=== PATIENT | female | born 1955 | race Caucasian/White ===

== ENCOUNTER 2016-10-24 21:09 | Inpatient (IN) | payer BC ==
[~2016-10-24] VITALS: Ht 167.6 cm; Wt 52.2 kg
[2016-10-24] MEDS ORDERED: TEGRETOL200 MG PO (21:22)
--- NOTE | 2016-10-24 21:43 | Emergency Room Report ---
History of Present Illness General Chief Complaint: Abdominal Pain Source: Patient Present Illness HPI Patient presents with complaints of diffuse mid and lower abdominal pain patient states that she ate a fruit (papaya) on Saturday and soon after began having a bloated sensation nauseated She has vomited several times Also complains of diarrhea Patient complains of frequency of urination as well Denies any chest pain or short of breath abdominal pain is cramping and bloating sensation 6/10 Patient initially has started to feel somewhat improved earlier today however the pain again returned Denies any change with position Allergies: Coded Allergies: ASPIRIN (Verified Allergy, Unknown, 10/24/16) Patient History Past Medical History: see triage record Pertinent Family History: none Last Menstrual Period: 2014 Now: No Reviewed Nursing Documentation: PMH: Agreed, PSxH: Agreed Nursing Documentation-PMH Past Medical History: No History, Except For Review of Systems All Other Systems: negative except mentioned in HPI Physical Exam Vital Signs Date Time Temp Pulse Resp B/P Pulse Ox O2 Delivery O2 Flow Rate FiO2 10/24/16 21:18 98.1 65 14 138/81 99 Room Air Sp02 EP Interpretation: reviewed, normal General Appearance: well appearing, no apparent distress Head: normocephalic, atraumatic Eyes: bilateral eye EOMI, bilateral eye PERRL ENT: hearing grossly normal, normal pharynx, TMs + canals normal, uvula midline Neck: full range of motion, supple, no meningismus, no bony tend Respiratory: lungs clear, normal breath sounds, no rhonchi, no respiratory distress, no retraction, no accessory muscle use Cardiovascular #1: normal peripheral pulses, regular rate, rhythm, no edema, no gallop, no JVD, no murmur Gastrointestinal: normal bowel sounds, soft, no mass, no organomegaly, non- distended, no guarding, no hernia, no pulsatile mass, no rebound, other - Uncomfortable diffusely on palpation I cannot localize the pain specifically, however patient has tender on the mid abdomen also bilateral lower abdomen, Genitourinary: no CVA tenderness Neurologic: oriented x3, responsive, fryline attendant III-XII nml as tested, motor strength/ tone normal, sensory intact Psychiatric: mood/affect normal Skin: normal color, no rash, warm/dry, palpation normal Lymphatic: normal inspection, no adenopathy Medical Decision Making Diagnostic Impression: Primary Impression: Small bowel obstruction Additional Impression: Leukocytosis ER Course Given the patient's initial history exam and presentation She is found to be complex requiring imaging and blood work Patient was not able to tolerate oral contrast secondary to the persistent vomiting Therefore CAT scan was obtained without oral contrast there is found to be evidence of small bowel obstruction Patient's white blood for count was also elevated at 20,000 This does raise concern of other differentials such as colitis, ischemia appendicitis Patient on repeat exam has improved abdominal exam There is no obvious rigidity Patient was attempted for NG tube placement States that she has had problems with the ENT specialty another provider is secondary to a deviated septum And at this time was unable to tolerate NG placement Patient received IV antibiotics further fluids is strict n.p.o. status And will have close followup General surgery consultation was made via the ER , , Labs Test 10/24/16 21:50 White Blood Count 20.0 K/UL (4.8-10.8) Red Blood Count 5.28 M/UL (4.20-5.40) Hemoglobin 16.3 G/DL (12.0-16.0) Hematocrit 49.9 % (37.0-47.0) Mean Corpuscular Volume 94 FL (80-99) Mean Corpuscular Hemoglobin 30.8 PG (27.0-31.0) Mean Corpuscular Hemoglobin Concent 32.6 G/DL (32.0-36.0) Red Cell Distribution Width 11.1 % (11.6-14.8) Platelet Count 323 K/UL (150-450) Mean Platelet Volume 6.5 FL (6.5-10.1) Neutrophils (%) (Auto) % (45.0-75.0) Lymphocytes (%) (Auto) % (20.0-45.0) Monocytes (%) (Auto) % (1.0-10.0) Eosinophils (%) (Auto) % (0.0-3.0) Basophils (%) (Auto) % (0.0-2.0) Differential Total Cells Counted 100 Neutrophils % (Manual) 94 % (45-75) Lymphocytes % (Manual) 3 % (20-45) Monocytes % (Manual) 3 % (1-10) Eosinophils % (Manual) 0 % (0-3) Basophils % (Manual) 0 % (0-2) Band Neutrophils 0 % (0-8) Platelet Estimate Adequate Platelet Morphology Normal Polychromasia 1+ Urine Color Yellow Urine Appearance Cloudy Urine pH 6 (4.5-8.0) Urine Specific [place] 1.025 (1.005-1.035) Urine Protein 2+ (NEGATIVE) Urine Glucose (UA) Negative (NEGATIVE) Urine Ketones 4+ (NEGATIVE) Urine Occult Blood 1+ (NEGATIVE) Urine Nitrite Negative (NEGATIVE) Urine Bilirubin Negative (NEGATIVE) Urine Urobilinogen Normal MG/DL (0.0-1.0) Urine Leukocyte Esterase 1+ (NEGATIVE) Urine RBC 0-2 /HPF (0 - 2) Urine WBC 0-2 /HPF (0 - 2) Urine Squamous Epithelial Cells Moderate /LPF (NONE/OCC) Urine Bacteria Moderate /HPF (NONE) Sodium Level 142 mEQ/L (135-145) Potassium Level 4.1 mEQ/L (3.4-4.9) Chloride Level 98 mEQ/L (98-107) Carbon Dioxide Level 27 mEQ/L (20-30) Anion Gap 17 (5-15) Blood Urea Nitrogen 26 mg/dL (7-23) Creatinine 0.7 mg/dL (0.5-0.9) Estimat Glomerular Filtration Rate > 60 mL/min (>60) Glucose Level 149 mg/dL (74-106) Calcium Level 10.5 mg/dL (8.6-10.2) Total Bilirubin 0.5 mg/dL (0.0-1.2) Aspartate Amino Transf (AST/SGOT) 20 U/L (5-40) Alanine Aminotransferase (ALT/SGPT) 6 U/L (3-33) Alkaline Phosphatase 82 U/L (35-104) Total Protein 7.7 g/dL (6.6-8.7) Albumin 4.8 g/dL (3.5-5.2) Globulin 2.9 g/dL Albumin/Globulin Ratio 1.6 (1.0-2.7) Lipase 38 U/L (< 60) CT/MRI/US Diagnostic Results CT/MRI/US Diagnostic Results : Impression CT abdomen pelvis:evidence of sbo, no free air Last Vital Signs Date Time Temp Pulse Resp B/P Pulse Ox O2 Delivery O2 Flow Rate FiO2 10/24/16 21:18 98.1 65 14 138/81 99 Room Air Status: improved Disposition: ADMITTED INPATIENT Condition: Serious ZAK BARNES D.O. Oct 24, 2016 21:43
[2016-10-24] MEDS ORDERED: Morphine Sulfate 4mg/ml Inj IVP ONE (21:45)
[2016-10-24 22:05] LABS: APPEARANCE,URINE CLOUDY; KETONES,URINE 4+ (NEGATIVE); LEUKOCYTE ESTERASE ,URINE 1+ (NEGATIVE); NITRITE,URINE NEGATIVE (NEGATIVE); PH,URINE 6 (4.5-8.0); PROTEIN,URINE 2+ (NEGATIVE); UROBILINOGEN,URINE NORMAL MG/DL (0.0-1.0)
[2016-10-24 22:10] LABS: MEAN CORPUSCULAR HEMOGLOBIN 30.8 PG (27.0-31.0); MEAN CORPUSCULAR HGB CONC 32.6 G/DL (32.0-36.0); MEAN CORPUSCULAR VOLUME 94 FL (80-99); MEAN PLATELET VOLUME 6.5 FL (6.5-10.1); PLATELET COUNT 323 K/UL (150-450); RED BLOOD COUNT 5.28 M/UL (4.20-5.40); RED CELL DISTRIBUTION WIDTH 11.1 % (11.6-14.8)
[2016-10-24 22:14] LABS: RBC,URINE 0-2 /HPF (0 - 2); SQUAMOUS EPITHELIAL CELL,UR MODERATE /LPF (NONE/OCC); WBC,URINE 0-2 /HPF (0 - 2)
[2016-10-24 22:15] LABS: BACTERIA,URINE MODERATE /HPF
[2016-10-24 22:24] LABS: ALANINE AMINOTRANSFERASE 6 U/L (3-33); ALBUMIN/GLOBULIN RATIO 1.6 (1.0-2.7); ANION GAP 17 (5-15); ASPARTATE AMINO TRANSFERASE 20 U/L (5-40); CALCIUM 10.5 mg/dL (8.6-10.2); CARBON DIOXIDE 27 mEQ/L (20-30); CHLORIDE 98 mEQ/L (98-107); CREATININE 0.7 mg/dL (0.5-0.9); GLOMERULAR FILTRATION RATE > 60 mL/min (>60); HEMOLYSIS 4; LIPASE 38 U/L (< 60); POTASSIUM 4.1 mEQ/L (3.4-4.9); SODIUM 142 mEQ/L (135-145); TOTAL PROTEIN 7.7 g/dL (6.6-8.7)
[2016-10-24 22:47] VITALS: BP 134/78
[2016-10-24 22:50] LABS: LYMPHOCYTES % (MANUAL) 3 % (20-45); NEUTROPHILS % (MANUAL) 94 % (45-75); TOTAL CELLS COUNTED 100
[2016-10-24 22:51] LABS: BAND NEUTROPHILS % (MANUAL) 0 % (0-8); BASOPHILS % (MANUAL) 0 % (0-2); EOSINOPHILS % (MANUAL) 0 % (0-3); PLATELET ESTIMATE ADEQUATE; PLATELET MORPHOLOGY NORMAL; POLYCHROMASIA 1+
[2016-10-25] MEDS ORDERED: Morphine Sulfate 4mg/ml Inj IVP ONE
[2016-10-25 01:00] VITALS: BP 120/76
[2016-10-25 02:00] VITALS: BP 124/76
[2016-10-25] MEDS ORDERED: HYDROmorphone 1mg/ml Carpuject IVP PRN (03:30)
[2016-10-25 04:00] VITALS: BP 128/68
[2016-10-25] MEDS ORDERED: Zosyn 3.375gm inj ONE (05:18)
[2016-10-25] MEDS: Piperacillin/Tazobactam 3.375 GM in D5W 110 ML IVPB SCH ×3 (05:36→22:43)
[2016-10-25 07:17] LABS: BASOPHILS % (AUTO) 0.2 % (0.0-2.0); LYMPHOCYTES % (AUTO) 9.3 % (20.0-45.0); MEAN CORPUSCULAR HEMOGLOBIN 31.1 PG (27.0-31.0); MEAN CORPUSCULAR HGB CONC 33.3 G/DL (32.0-36.0); MEAN CORPUSCULAR VOLUME 93 FL (80-99); MONOCYTES % (AUTO) 10.1 % (1.0-10.0); NEUTROPHILS % (AUTO) 80.4 % (45.0-75.0); PLATELET COUNT 326 K/UL (150-450); RED BLOOD COUNT 4.67 M/UL (4.20-5.40); RED CELL DISTRIBUTION WIDTH 11.7 % (11.6-14.8)
[2016-10-25 07:41] LABS: ALANINE AMINOTRANSFERASE 5 U/L (3-33); ALBUMIN/GLOBULIN RATIO 1.7 (1.0-2.7); ANION GAP 15 (5-15); ASPARTATE AMINO TRANSFERASE 17 U/L (5-40); CALCIUM 9.3 mg/dL (8.6-10.2); CARBON DIOXIDE 26 mEQ/L (20-30); CHLORIDE 101 mEQ/L (98-107); CREATININE 0.7 mg/dL (0.5-0.9); GLOMERULAR FILTRATION RATE > 60 mL/min (>60); HEMOLYSIS 7; MAGNESIUM 1.7 mg/dL (1.7-2.5); SODIUM 142 mEQ/L (135-145); TOTAL PROTEIN 6.7 g/dL (6.6-8.7)
[2016-10-25 08:00] VITALS: BP 133/79
--- NOTE | 2016-10-25 08:48 | Diagnostic Imaging Report ---
Indications: Mid abdominal pain and vomiting, leukocytosis, history of abdominal tumor Technique: Continuous helical CT imaging of the abdomen and pelvis was performed with automatic exposure control following administration of nonionic IV contrast only, on a Siemens sensation [address] scanner. Axial and coronal images were reconstructed at 5 mm slice thickness. No oral contrast was administered per requesting physician's order, reason not stated, presumably due to vomiting. CTDI volume(s): 13 mGy Total DLP: 653 mGy-cm findings: Comparison: None Lack of oral contrast limits evaluation of gastrointestinal tract. Stomach, much of small bowel diffusely dilated, fluid-filled with air-fluid levels, some fecalization distally. Distal small bowel nondilated. Relatively abrupt transition midline anterior upper pelvis.. Mural thickening of one or more nondilated small bowel loops not excludable. Appendix not identified. Colon and rectum mostly collapsed. Small amount of free fluid bases liver and spleen, in the dependent portion of pelvis. No extraluminal gas or loculated fluid collections. One centimeters circumscribed low-attenuation focus peripheral aspect of hepatic segment 3. Several small enhancing soft tissue masses are present within/emanating exophytically from the uterine fundus. Scattered arterial mural calcifications. No obvious flow-limiting stenosis or occlusion. Remainder visualized abdominopelvic anatomy demonstrates no other obvious acute abnormality. Lung bases and adjacent pleural surfaces clear. Multilevel disc space narrowing with marginal osteophyte formation in lumbar spine. IMPRESSION: Findings compatible with high-grade distal small bowel obstruction, transition in the anterior pelvis, etiology indeterminate. Mild ascites, nonspecific, likely secondary to above No other evidence of acute abdominopelvic disease, with limitation as described. Subtle but potentially significant abnormalities may be missed. Repeat CT scan with full oral and IV contrast preparation recommended for more complete evaluation, as clinically indicated Hepatic cyst Multi-fibroid uterus Degenerative spondylosis. This correlates with [facility] preliminary report.
--- NOTE | 2016-10-25 10:17 | Consultation ---
DATE OF CONSULTATION: 10/25/2016 CONSULTING PHYSICIAN: Ambrose Jara M.D. REQUESTING PHYSICIAN: Shahid Klein M.D. REASON FOR CONSULTATION: Abdominal pain. HISTORY OF PRESENT ILLNESS: This is a 61-year-old female, who presented with abdominal pain for two days. She stated the pain started on 10/23/2016 and apparently it is located mainly in the lower abdomen and periumbilical. She stated that she has been nauseated and she vomited twice. The pain apparently is crampy. She states that she had the pain and then the pain resolves for short time and then she has recurrence of pain. She claims that since the onset of pain she has had two bowel movements. Apparently, she has had small amount of gas. She feels that she is bloated. She denied any fever, cough, dysuria, or frequency and the only abdominal surgery that she had was a ovarian cystectomy in 1994. She denies any previous history of similar pain, but she states that sometimes she gets bloated with special food like papaya. PAST MEDICAL HISTORY: She denies allergies, asthma, diabetes, hypertension, cardiac or renal diseases. She has a history of craniotomy for benign brain tumor after which she apparently she has had only a short episode of seizure. PAST SURGICAL HISTORY: Include craniotomy, ovarian cystectomy and right inguinal herniorrhaphy. MEDICATIONS: Tegretol. SOCIAL HISTORY: This is a 61-year-old female, who is . Denies smoking and drinking. REVIEW OF SYSTEMS: Noncontributory. PHYSICAL EXAMINATION: GENERAL: The patient appeared to be a well-developed, well-nourished, 61-year-old female, lying on the bed complaining of abdominal pain HEENT: Head, status post left craniotomy. Eyes: Pupils are equal, round, and reactive to light. Mouth is clear. NECK: There is no palpable thyromegaly or adenopathy. CHEST: Clear to auscultation and percussion. HEART: There is no gallop or murmur. S1 and S2 are within normal limits. ABDOMEN: Mildly distended, but soft. She has a mild tenderness all over. There is no localization. The bowel sounds are hypoactive. She has a scar of the transverse suprapubic incision and right inguinal incision. GENITALIA: Normal. EXTREMITIES: Within normal limits. LABORATORY AND DIAGNOSTIC DATA: CBC last night did showed a WBC of 20,000 with a severe left shift, but this morning, which has been only about 10 to 12 hours later WBC 10,000 with 80% neutrophil. Chemistry is normal. The UA is normal. The CAT scan of the abdomen has shown small bowel obstruction. ASSESSMENT: 1. Small bowel obstruction. RECOMMENDATION: CAT scan was reviewed, it actually shows the small bowel obstruction that to make sure what the diagnosis. I took the liberty of ordering a Gastrografin small bowel follow-through and will monitor the progression and if it does not improve she will require an exploratory laparotomy. Ambrose Jara M.D. DR: Long JOB#: [id number] CC:
[2016-10-25 10:51] LABS: INR 1.1 (0.9-1.1)
[2016-10-25 11:57] VITALS: BP 119/73
[2016-10-25] MEDS: Morphine Sulfate 2mg/ml Inj IVP PRN ×3 (12:31→20:52)
[2016-10-25] MEDS: carBAMazepine 200mg tab ORAL SCH ×2 (14:00→20:10)
--- NOTE | 2016-10-25 17:07 | History and Physical Report ---
DATE OF ADMISSION: 10/25/2016 REASON FOR ADMISSION: Small bowel obstruction. HISTORY OF PRESENT ILLNESS: This 61-year-old white female, who underwent abdominal surgery about 20 years ago for ovarian cyst, and as a child for a right inguinal hernia repair. Over the years, she has had episodes of abdominal discomfort lasting a few hours after eating a high-fiber diet with rare episodes of vomiting. She has never required hospitalization. Last evening however she developed diffuse abdominal pain and then mid and lower quadrants after eating a whole papaya and starting to get nausea initially, then bloating, vomiting, and some diarrhea. She also notes frequency but no dysuria. She denies any fevers or chills or other constitutional symptoms. She was seen in the emergency room. Workup was undertaken and small bowel obstruction is documented. She also had a white count of 20,000 . PAST MEDICAL HISTORY: History of craniotomy for benign brain tumor, seizure disorder. ALLERGIES: Include aspirin. SOCIAL HISTORY: Negative for smoking or alcohol use. REVIEW OF SYSTEMS: Otherwise, unremarkable PHYSICAL EXAMINATION: GENERAL: Thin female in no acute distress. Craniotomy site noted. VITAL SIGNS: Blood pressure 124/76, pulse 76, respiratory rate 18, and afebrile. LUNGS: Clear. CARDIAC: Regular. Normal S1 and S2. No murmur. BREASTS: Without masses. EXTREMITIES: No edema. ABDOMEN: Distended but soft. No guarding or rebound. Bowel sounds are hypoactive. Surgical scar is, transverse, suprapubic and right inguinal. LABORATORY AND DIAGNOSTIC DATA: White count was 20 on admission and 10 today. Lactic acid 0.8. Urinalysis is negative. Chemistry panel notable for BUN 28, creatinine 0.8. IMPRESSION: 1. Small bowel obstruction. 2. Prior history of abdominal surgery for ovarian cyst and right inguinal hernia repair. 3. History of craniotomy for benign brain tumor with subsequent seizure disorder. PLAN: 1. NPO. 2. Intravenous fluids. 3. Pain control and antiemetics. 4. Surgical and gastrointestinal consultations to follow. Shahid Klein M.D. DR: Rosana JOB#: [id number] CC:
[2016-10-25 20:00] VITALS: BP 106/54
[2016-10-25] MEDS: Heparin 5000 units/ml inj SUBQ SCH (20:10)
[2016-10-25] MEDS ORDERED: Tubing IV Secondary IV ONE (20:17)
[2016-10-26] VITALS: BP 134/76
[2016-10-26 04:00] VITALS: BP 139/74
[2016-10-26] MEDS: Piperacillin/Tazobactam 3.375 GM in D5W 110 ML IVPB SCH ×3 (06:02→21:12)
[2016-10-26 07:21] LABS: BASOPHILS % (AUTO) 0.5 % (0.0-2.0); EOSINOPHILS % (AUTO) 0.2 % (0.0-3.0); MEAN CORPUSCULAR HEMOGLOBIN 31.4 PG (27.0-31.0); MEAN CORPUSCULAR HGB CONC 33.5 G/DL (32.0-36.0); MEAN CORPUSCULAR VOLUME 94 FL (80-99); MEAN PLATELET VOLUME 7.1 FL (6.5-10.1); MONOCYTES % (AUTO) 17.6 % (1.0-10.0); NEUTROPHILS % (AUTO) 55.8 % (45.0-75.0); PLATELET COUNT 299 K/UL (150-450); RED BLOOD COUNT 4.14 M/UL (4.20-5.40); RED CELL DISTRIBUTION WIDTH 11.7 % (11.6-14.8); WHITE BLOOD COUNT 6.7 K/UL (4.8-10.8)
[2016-10-26 08:08] VITALS: BP 112/65
[2016-10-26] MEDS: Heparin 5000 units/ml inj SUBQ SCH ×2 (09:00→21:00)
[2016-10-26] MEDS: carBAMazepine 200mg tab ORAL SCH ×2 (09:00→17:15)
[2016-10-26 11:34] VITALS: BP 110/66
--- NOTE | 2016-10-26 12:02 | General Surgery Progress Note ---
General Surgery-Progress Note Subjective Symptoms: improved, pain absent, BM Objective Last 24 Hour Vital Signs Date Time Temp Pulse Resp B/P Pulse Ox O2 Delivery O2 Flow Rate FiO2 10/26/16 11:34 97.9 66 20 110/66 97 Room Air 10/26/16 08:08 97.2 67 20 112/65 98 Room Air 10/26/16 04:00 98.2 72 18 139/74 96 Room Air 10/26/16 00:00 98.8 74 18 134/76 97 Room Air 10/25/16 20:00 97.0 71 20 106/54 97 Room Air I&O Intake and Output 10/25/16 10/26/16 19:00 07:00 Intake Total 625 ml 250 ml Balance 625 ml 250 ml Intake IV Total 625 ml 250 ml # Voids 1 Respiratory: clear Abdomen: soft, flat, non-tender, present bowel sounds Extremities: no edema, no tenderness Laboratory Tests Test 10/26/16 06:05 White Blood Count 6.7 K/UL (4.8-10.8) Red Blood Count 4.14 M/UL (4.20-5.40) L Hemoglobin 13.0 G/DL (12.0-16.0) Hematocrit 38.7 % (37.0-47.0) Mean Corpuscular Volume 94 FL (80-99) Mean Corpuscular Hemoglobin 31.4 PG (27.0-31.0) H Mean Corpuscular Hemoglobin Concent 33.5 G/DL (32.0-36.0) Red Cell Distribution Width 11.7 % (11.6-14.8) Platelet Count 299 K/UL (150-450) Mean Platelet Volume 7.1 FL (6.5-10.1) Neutrophils (%) (Auto) 55.8 % (45.0-75.0) Lymphocytes (%) (Auto) 26.0 % (20.0-45.0) Monocytes (%) (Auto) 17.6 % (1.0-10.0) H Eosinophils (%) (Auto) 0.2 % (0.0-3.0) Basophils (%) (Auto) 0.5 % (0.0-2.0) Carcinoembryonic Antigen 1.4 ng/mL CA 125 Antigen Pending Assessment Additional Comments Partial SBO resolved Plan Additional Comments SCARLET Barrientos Oct 26, 2016 12:02
[2016-10-26 15:45] VITALS: BP 117/68
[2016-10-26 20:00] VITALS: BP 109/61
[2016-10-27] VITALS: BP 96/46
--- NOTE | 2016-10-27 03:07 | Progress Note ---
DATE: 10/26/2016 INTERNAL MEDICINE PROGRESS NOTE: SUBJECTIVE: The patient has completed upper GI series and results are pending. The patient has not had any recurring vomiting or diarrhea since completing this study. The patient feels better today. She tolerated some clear liquids. OBJECTIVE: VITAL SIGNS: Temperature is 99.0 degrees, blood pressure 117/68, heart rate 64, and respiratory rate 21. HEENT: Oropharynx is clear. NECK: Supple. LUNGS: Clear. CARDIAC: Regular rhythm and rate. Normal S1 and S2 with no murmur. ABDOMEN: Slightly distended, but soft. No guarding, rebound, or focal tenderness. Bowel sounds are active. EXTREMITIES: There is no edema. IMPRESSION: 1. Small bowel obstruction, resolved. 2. Fever. 3. Dehydration, recovered. 4. Leukocytosis, resolved. PLAN: 1. Advance diet. 2. Follow up imaging studies. 3. Check results of tumor markers. 4. Continue empiric antibiotics. Shahid Klein M.D. DR: Soraya JOB#: [id number] CC:
[2016-10-27 04:00] VITALS: BP 127/63
[2016-10-27] MEDS: Piperacillin/Tazobactam 3.375 GM in D5W 110 ML IVPB SCH ×2 (05:19→12:59)
[2016-10-27] MEDS: carBAMazepine 200mg tab ORAL SCH ×2 (08:06→17:55)
[2016-10-27] MEDS: Heparin 5000 units/ml inj SUBQ SCH ×2 (08:06→20:48)
[2016-10-27 08:25] VITALS: BP 106/66
[2016-10-27 11:31] VITALS: BP 101/60
--- NOTE | 2016-10-27 11:47 | General Surgery Progress Note ---
General Surgery-Progress Note Subjective Symptoms: improved, BM Objective Last 24 Hour Vital Signs Date Time Temp Pulse Resp B/P Pulse Ox O2 Delivery O2 Flow Rate FiO2 10/27/16 11:31 97.5 62 19 101/60 98 Room Air 10/27/16 08:25 97.5 70 19 106/66 98 Room Air 10/27/16 04:00 97.3 57 18 127/63 97 Room Air 10/27/16 00:00 98.2 55 18 96/46 97 Room Air 10/26/16 20:00 99.0 61 20 109/61 98 Room Air 10/26/16 15:45 99.0 64 21 117/68 96 Room Air I&O Intake and Output 10/26/16 10/27/16 19:00 07:00 Intake Total 1610 ml 930.0 ml Output Total 200 ml Balance 1610 ml 730.0 ml Intake Oral 360 ml 250 ml IV Total 1250 ml 680.0 ml Output Urine Total 200 ml # Voids 2 2 Respiratory: clear Abdomen: soft, flat, non-tender, present bowel sounds Extremities: no edema, no tenderness Assessment Additional Comments S/P SBO Plan Additional Comments Can be discharged home SCARLET KAY Oct 27, 2016 11:47
[2016-10-27 19:00] VITALS: BP 133/78
[2016-10-28] VITALS: BP 120/64
--- NOTE | 2016-10-28 03:08 | Progress Note ---
DATE: 10/27/2016 INTERNAL MEDICINE PROGRESS NOTE SUBJECTIVE: The patient's abdominal pain improved this morning. Her diet was advanced. Following lunch and dinner, she became increasingly distended, gaseous and had cramps and pain again. No vomiting has been noted however. OBJECTIVE: VITAL SIGNS: Afebrile. Blood pressure 101/60, heart rate 62, and respirations 19. LUNGS: Clear. CARDIAC: Regular. Normal S1 and S2. ABDOMEN: Distended. Hyperactive bowel sounds noted. No focal tenderness. EXTREMITIES: Without edema. IMPRESSION: Small bowel obstruction possibly worsening swallowing resumption of oral intake. PLAN: 1. Repeat imaging studies. 2. Awaiting results of upper GI series. 3. GI and surgical follow up. 4. Resume full liquid diet at this time. Shahid Klein M.D. DR: ABRAHAM JOB#: [id number] CC:
[2016-10-28 04:00] VITALS: BP 113/64
[2016-10-28 06:32] LABS: BASOPHILS % (AUTO) 0.6 % (0.0-2.0); EOSINOPHILS % (AUTO) 1.9 % (0.0-3.0); LYMPHOCYTES % (AUTO) 33.2 % (20.0-45.0); MEAN CORPUSCULAR HEMOGLOBIN 30.8 PG (27.0-31.0); MEAN CORPUSCULAR VOLUME 93 FL (80-99); MEAN PLATELET VOLUME 6.8 FL (6.5-10.1); MONOCYTES % (AUTO) 9.5 % (1.0-10.0); NEUTROPHILS % (AUTO) 54.7 % (45.0-75.0); PLATELET COUNT 232 K/UL (150-450); RED BLOOD COUNT 3.78 M/UL (4.20-5.40); RED CELL DISTRIBUTION WIDTH 11.2 % (11.6-14.8); WHITE BLOOD COUNT 5.7 K/UL (4.8-10.8)
[2016-10-28 07:52] LABS: ALANINE AMINOTRANSFERASE 5 U/L (3-33); ALBUMIN/GLOBULIN RATIO 1.8 (1.0-2.7); ANION GAP 15 (5-15); ASPARTATE AMINO TRANSFERASE 14 U/L (5-40); CALCIUM 8.5 mg/dL (8.6-10.2); CARBON DIOXIDE 24 mEQ/L (20-30); CHLORIDE 105 mEQ/L (98-107); CREATININE 0.6 mg/dL (0.5-0.9); GLOMERULAR FILTRATION RATE > 60 mL/min (>60); HEMOLYSIS 1; MAGNESIUM 1.8 mg/dL (1.7-2.5); POTASSIUM 3.4 mEQ/L (3.4-4.9); SODIUM 144 mEQ/L (135-145); TOTAL PROTEIN 5.4 g/dL (6.6-8.7)
[2016-10-28 08:15] VITALS: BP 110/67
[2016-10-28] MEDS: carBAMazepine 200mg tab ORAL SCH ×2 (08:45→17:18)
[2016-10-28] MEDS: Heparin 5000 units/ml inj SUBQ SCH ×2 (08:45→19:58)
[2016-10-28] MEDS: Levofloxacin 500mg tab ORAL SCH (09:48)
--- NOTE | 2016-10-28 11:12 | General Progress Note ---
Assessment/Plan Assessment/Plan GI CONSULT Full note to follow Discussed at length with patient and Agree with clears and follow conservatively Restart IVF Will check KUB Also check C Diff. Will follow Thank you Giovanni Stiles MD Subjective Allergies: Coded Allergies: ASPIRIN (Verified Allergy, Unknown, 10/24/16) Objective Last 24 Hour Vital Signs Date Time Temp Pulse Resp B/P Pulse Ox O2 Delivery O2 Flow Rate FiO2 10/28/16 08:15 97.9 65 21 110/67 99 Room Air 10/28/16 04:00 97.7 52 20 113/64 95 Room Air 10/28/16 00:00 98.1 80 20 120/64 96 Room Air 10/27/16 19:00 98.4 62 18 133/78 99 Room Air 10/27/16 11:31 97.5 62 19 101/60 98 Room Air Intake and Output 10/27/16 10/28/16 19:00 07:00 Intake Total 1187.5 ml 480 ml Balance 1187.5 ml 480 ml Intake Oral 480 ml 480 ml IV Total 707.5 ml # Voids 1 5 # Bowel Movements 2 1 Laboratory Tests 10/28/16 04:55: White Blood Count 5.7, Red Blood Count 3.78L, Hemoglobin 11.7L, Hematocrit 35.3L , Mean Corpuscular Volume 93, Mean Corpuscular Hemoglobin 30.8, Mean Corpuscular Hemoglobin Concent 33.0, Red Cell Distribution Width 11.2L, Platelet Count 232, Mean Platelet Volume 6.8, Neutrophils (%) (Auto) 54.7, Lymphocytes (%) (Auto) 33.2, Monocytes (%) (Auto) 9.5, Eosinophils (%) (Auto) 1.9, Basophils (%) (Auto) 0.6, Sodium Level 144, Potassium Level 3.4, Chloride Level 105, Carbon Dioxide Level 24, Anion Gap 15, Blood Urea Nitrogen 20, Creatinine 0.6, Estimat Glomerular Filtration Rate > 60, Glucose Level 94, Calcium Level 8.5L, Magnesium Level 1.8, Total Bilirubin 0.3, Aspartate Amino Transf (AST/SGOT) 14, Alanine Aminotransferase (ALT/SGPT) 5, Alkaline Phosphatase 45, Total Protein 5.4L, Albumin 3.5, Globulin 1.9, Albumin/Globulin Ratio 1.8 Height (Feet): 5 Height (Inches): 6.00 Weight (Pounds): 115 GIOVANNI STILES Oct 28, 2016 11:12
--- NOTE | 2016-10-28 11:24 | General Surgery Progress Note ---
General Surgery-Progress Note Subjective Symptoms: improved, BM Objective Last 24 Hour Vital Signs Date Time Temp Pulse Resp B/P Pulse Ox O2 Delivery O2 Flow Rate FiO2 10/28/16 08:15 97.9 65 21 110/67 99 Room Air 10/28/16 04:00 97.7 52 20 113/64 95 Room Air 10/28/16 00:00 98.1 80 20 120/64 96 Room Air 10/27/16 19:00 98.4 62 18 133/78 99 Room Air 10/27/16 11:31 97.5 62 19 101/60 98 Room Air I&O Intake and Output 10/27/16 10/28/16 19:00 07:00 Intake Total 1187.5 ml 480 ml Balance 1187.5 ml 480 ml Intake Oral 480 ml 480 ml IV Total 707.5 ml # Voids 1 5 # Bowel Movements 2 1 Respiratory: clear Abdomen: soft, flat, non-tender, present bowel sounds Extremities: no edema, no tenderness Laboratory Tests Test 10/28/16 04:55 White Blood Count 5.7 K/UL (4.8-10.8) Red Blood Count 3.78 M/UL (4.20-5.40) L Hemoglobin 11.7 G/DL (12.0-16.0) L Hematocrit 35.3 % (37.0-47.0) L Mean Corpuscular Volume 93 FL (80-99) Mean Corpuscular Hemoglobin 30.8 PG (27.0-31.0) Mean Corpuscular Hemoglobin Concent 33.0 G/DL (32.0-36.0) Red Cell Distribution Width 11.2 % (11.6-14.8) L Platelet Count 232 K/UL (150-450) Mean Platelet Volume 6.8 FL (6.5-10.1) Neutrophils (%) (Auto) 54.7 % (45.0-75.0) Lymphocytes (%) (Auto) 33.2 % (20.0-45.0) Monocytes (%) (Auto) 9.5 % (1.0-10.0) Eosinophils (%) (Auto) 1.9 % (0.0-3.0) Basophils (%) (Auto) 0.6 % (0.0-2.0) Sodium Level 144 mEQ/L (135-145) Potassium Level 3.4 mEQ/L (3.4-4.9) Chloride Level 105 mEQ/L (98-107) Carbon Dioxide Level 24 mEQ/L (20-30) Anion Gap 15 (5-15) Blood Urea Nitrogen 20 mg/dL (7-23) Creatinine 0.6 mg/dL (0.5-0.9) Estimat Glomerular Filtration Rate > 60 mL/min (>60) Glucose Level 94 mg/dL (74-106) Calcium Level 8.5 mg/dL (8.6-10.2) L Magnesium Level 1.8 mg/dL (1.7-2.5) Total Bilirubin 0.3 mg/dL (0.0-1.2) Aspartate Amino Transf (AST/SGOT) 14 U/L (5-40) Alanine Aminotransferase (ALT/SGPT) 5 U/L (3-33) Alkaline Phosphatase 45 U/L (35-104) Total Protein 5.4 g/dL (6.6-8.7) L Albumin 3.5 g/dL (3.5-5.2) Globulin 1.9 g/dL Albumin/Globulin Ratio 1.8 (1.0-2.7) Assessment Additional Comments S/P partial small bowel obstruction Plan Additional Comments Per PCP SCARLET KAY Oct 28, 2016 11:24
[2016-10-28] MEDS ORDERED: D5 1/2NS 1,000 ML IV SCH (11:30)
[2016-10-28 12:00] VITALS: BP 107/62
[2016-10-28 20:00] VITALS: BP 145/85
--- NOTE | 2016-10-28 23:18 | Progress Note ---
October 28, 2016 INTERNAL MEDICINE PROGRESS NOTE SUBJECTIVE: The patient developed recurring abdominal bloating, pain, and discomfort yesterday after a meal. Her diet was downgraded, today she has improved. She continues to have watery stools and abdominal cramping. OBJECTIVE: VITAL SIGNS: Stable. T-max 99. ABDOMEN: Slightly distended, but soft with no guarding or rebound. EXTREMITIES: Reveal no edema. LUNGS: Clear. CARDIAC: Regular. IMPRESSION: 1. Partial small bowel obstruction. 2. Persisting abdominal pain. 3. Prior history of abdominal surgeries. PLAN: 1. Cautiously advance diet. 2. Monitor clinical parameters. 3. Followup results of upper gastrointestinal series. 4. Gastrointestinal and surgical consultations have been reviewed and noted. Shahid Klein M.D. DR: Rosana JOB#: [id number] CC: ANALI
[2016-10-29 00:20] VITALS: BP 133/65
[2016-10-29 04:48] VITALS: BP 125/64
[2016-10-29 07:13] LABS: ANION GAP 12 (5-15); CALCIUM 8.9 mg/dL (8.6-10.2); CARBON DIOXIDE 28 mEQ/L (20-30); CHLORIDE 107 mEQ/L (98-107); CREATININE 0.6 mg/dL (0.5-0.9); GLOMERULAR FILTRATION RATE > 60 mL/min (>60); HEMOLYSIS 9; POTASSIUM 3.6 mEQ/L (3.4-4.9); SODIUM 147 mEQ/L (135-145)
[2016-10-29 07:23] LABS: EOSINOPHILS % (AUTO) 2.1 % (0.0-3.0); LYMPHOCYTES % (AUTO) 37.7 % (20.0-45.0); MEAN CORPUSCULAR HEMOGLOBIN 30.8 PG (27.0-31.0); MEAN CORPUSCULAR HGB CONC 32.9 G/DL (32.0-36.0); MEAN CORPUSCULAR VOLUME 94 FL (80-99); MEAN PLATELET VOLUME 7.3 FL (6.5-10.1); MONOCYTES % (AUTO) 10.5 % (1.0-10.0); NEUTROPHILS % (AUTO) 48.7 % (45.0-75.0); PLATELET COUNT 249 K/UL (150-450); RED BLOOD COUNT 3.91 M/UL (4.20-5.40); RED CELL DISTRIBUTION WIDTH 11.1 % (11.6-14.8)
[2016-10-29] MEDS: carBAMazepine 200mg tab ORAL SCH ×2 (07:58→17:41)
[2016-10-29] MEDS: Heparin 5000 units/ml inj SUBQ SCH ×2 (07:59→20:59)
[2016-10-29 08:00] VITALS: BP 117/70
[2016-10-29] MEDS: Levofloxacin 500mg tab ORAL SCH (08:00)
--- NOTE | 2016-10-29 10:58 | General Progress Note ---
Assessment/Plan Assessment/Plan Assessment - SB/PSBO - resolving Recommendations - OOB - advance diet slowly - surgical f/u - d/c planning per surgery Subjective Allergies: Coded Allergies: ASPIRIN (Verified Allergy, Unknown, 10/24/16) Subjective Feels better (+) BM less distention Objective Last 24 Hour Vital Signs Date Time Temp Pulse Resp B/P Pulse Ox O2 Delivery O2 Flow Rate FiO2 10/29/16 08:00 97.8 67 18 117/70 100 Room Air 10/29/16 04:48 97.2 53 18 125/64 100 Room Air 10/29/16 00:20 97.3 50 18 133/65 100 Room Air 10/28/16 20:00 97.9 63 18 145/85 100 Room Air 10/28/16 12:00 98.0 68 19 107/62 99 Room Air Intake and Output 10/28/16 10/29/16 19:00 07:00 Intake Total 560 ml 500 ml Balance 560 ml 500 ml Intake Oral 560 ml 500 ml # Voids 3 6 Laboratory Tests 10/29/16 05:20: White Blood Count 5.0, Red Blood Count 3.91L, Hemoglobin 12.0, Hematocrit 36.6L , Mean Corpuscular Volume 94, Mean Corpuscular Hemoglobin 30.8, Mean Corpuscular Hemoglobin Concent 32.9, Red Cell Distribution Width 11.1L, Platelet Count 249, Mean Platelet Volume 7.3, Neutrophils (%) (Auto) 48.7, Lymphocytes (%) (Auto) 37.7, Monocytes (%) (Auto) 10.5H, Eosinophils (%) (Auto) 2.1, Basophils (%) (Auto) 1.0, Sodium Level 147H, Potassium Level 3.6, Chloride Level 107, Carbon Dioxide Level 28, Anion Gap 12, Blood Urea Nitrogen 12, Creatinine 0.6, Estimat Glomerular Filtration Rate > 60, Glucose Level 92, Calcium Level 8.9 Height (Feet): 5 Height (Inches): 6.00 Weight (Pounds): 115 Objective WDWN WW NAD NCAT supple CTA RRR Abd soft, less distention lower abdomen, min-none TTP lower abd no edema nonfocal ALICIA RAGLAND Oct 29, 2016 10:58
[2016-10-29 12:00] VITALS: BP 132/76
[2016-10-29 16:00] VITALS: BP 128/72
[2016-10-29 19:55] VITALS: BP 122/72
[2016-10-30] VITALS: BP 135/71
--- NOTE | 2016-10-30 02:19 | Progress Note ---
DATE: 10/29/2016 INTERNAL MEDICINE PROGRESS NOTE SUBJECTIVE: The patient has been on a full liquid diet. She has some bloating and distention. No nausea or vomiting. Her stools are still loose. OBJECTIVE: GENERAL: Afebrile, blood pressure 117/70, pulse 67, and respirations 18. ABDOMEN: Slightly distended. Soft. No focal tenderness, guarding, or rebound. IMPRESSION: Partial small bowel obstruction, slow to recover. PLAN: 1. Continue current management and slow advancing of diet. 2. Monitor clinical parameters. 3. Increase full free water intake orally in view of elevated sodium levels suggesting dehydration and hypernatremia. Shahid Klein M.D. DR: REYNA JOB#: [id number] CC:
[2016-10-30 04:00] VITALS: BP 131/68
[2016-10-30 08:30] VITALS: BP 120/78
--- NOTE | 2016-10-30 08:33 | Diagnostic Imaging Report ---
Clinical history: Abdominal distention. Technique: Single frontal abdominal radiograph was obtained. Comparisons: Abdomen/pelvis CT dated 10/24/16. Findings: Moderately distended small bowel loop in the left upper quadrant may reflect residual ileus or small bowel obstruction. Few mildly distended bowel loops in the pelvis noted. A small right pleural effusion may be present. IMPRESSION: Moderate air distention of small bowel loop in the left upper quadrant may reflect residual ileus or small bowel obstruction. Suspected small right pleural effusion.
--- NOTE | 2016-10-30 08:33 | Diagnostic Imaging Report ---
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 No unusual masses or calcifications. There is steady but very slow transit of contrast through the proximal small bowel. There is progressive filling of markedly dilated small bowel loops, and as of 8 hours, contrast is only seen within dilated proximal to mid small bowel loops and no distal collapsed small bowel loops are opacified. However, on the 17 hour image, nearly the entirety of the ingested contrast is seen within the colon. Minimal if any retained small bowel contrast is evident, although a few loops distended with gas are still demonstrated. Impression: Slow transit of contrast through dilated proximal and mid small bowel loops. This is consistent with ileus or small bowel obstruction, favor the bladder based on CT findings However, 17 hour exam demonstrates near-complete emptying of small bowel into the colon, indicating that the degree of obstruction is partial, and may have in part relieved itself during the course of the exam
[2016-10-30] MEDS: carBAMazepine 200mg tab ORAL SCH ×2 (08:51→18:00)
[2016-10-30] MEDS: Heparin 5000 units/ml inj SUBQ SCH (08:53)
[2016-10-30] MEDS: Levofloxacin 500mg tab ORAL SCH (08:53)
[2016-10-30 12:00] VITALS: BP 120/75
[2016-10-30 16:00] VITALS: BP 117/66
[2016-10-30] MEDS ORDERED: NKM (18:31)
--- NOTE | 2016-10-30 23:04 | General Progress Note ---
Assessment/Plan Assessment/Plan Assessment - SB/PSBO - resolved Recommendations - OOB - advance diet slowly - d/c planning Subjective Allergies: Coded Allergies: ASPIRIN (Verified Allergy, Unknown, 10/24/16) Subjective Feels better (+) BM less distention Objective Last 24 Hour Vital Signs Date Time Temp Pulse Resp B/P Pulse Ox O2 Delivery O2 Flow Rate FiO2 10/30/16 16:00 97.9 64 20 117/66 97 Room Air 10/30/16 12:00 97.3 61 19 120/75 98 Room Air 10/30/16 08:30 97.3 65 18 120/78 97 Room Air 10/30/16 04:00 97.2 55 18 131/68 97 Room Air 10/30/16 00:00 97.3 56 18 135/71 96 Room Air Intake and Output 10/29/16 10/30/16 19:00 07:00 Intake Total 580 ml 800 ml Balance 580 ml 800 ml Intake Oral 580 ml 800 ml # Voids 3 6 # Bowel Movements 2 Height (Feet): 5 Height (Inches): 6.00 Weight (Pounds): 115 Objective WDWN WW NAD NCAT supple CTA RRR Abd soft, less distention lower abdomen, min-none TTP lower abd no edema nonfocal ALICIA RAGLAND Oct 30, 2016 23:04
--- NOTE | 2016-11-01 13:49 | Discharge Summary ---
Sonam Torres NP 11/01/16 1349: Discharge Summary Hospital Course Date of Admission Oct 25, 2016 at 00:13 Date of Discharge Oct 30, 2016 at 18:45 Admitting Diagnosis SMALL BOWEL OBSTRUCTION GOPAL Isbell is a 61 year old female who was admitted on Oct 25, 2016 at 00:13 for Small Bowel Obstruction Hospital Course [id number] Discharge Discharge Disposition Patient was discharged to Home (01) Discharge Diagnoses: GILDA CISSE 11/01/16 2208: Discharge Summary Hospital Course Hospital Course Patient was placed on bowel rest and slowly improved. UGIS revealed slow motility, even after obstruction improved. CT abdomen without other abnormality. Patient is to follow up with primary GI doctor and eat low residue diet, with frequent small portions. Discharge Condition Upon Discharge: stable Discharge Diagnoses: Sonam Torres NP Nov 01, 2016 13:49 GILDA CISSE Nov 01, 2016 22:08
--- NOTE | 2016-11-02 02:08 | Discharge Summary 2 SIG ---
DATE OF ADMISSION: 10/25/2016 DATE OF DISCHARGE: 10/30/2016 CONSULTANTS: 1. Ambrsoe Jara M.D. 2. Giovanni Stiles M.D. BRIEF HOSPITAL COURSE: The patient is a 61-year-old white female, who underwent abdominal surgery about 20 years ago for ovarian cyst and as a child, had a right inguinal hernia repair. Over the years, she has had episodes of abdominal discomfort lasting for few hours after eating a high-fiber diet with rare episodes of vomiting. She presented to ED with diffuse abdominal pain localized to mid and lower quadrants with nausea, bloating, vomiting, and diarrhea. Workup at ED showed a CT scan findings of small bowel obstruction. WBC was elevated to 20,000. Dr. Jara and Dr. Stiles were consulted. She underwent a Gastrografin small bowel follow through, which showed slow transit of contrast through the dilated proximal and mid small bowel loops consistent with ileus or small-bowel obstruction. However, the 17-hour exam demonstrated near complete emptying of small bowel into the colon indicating the degree of obstruction is partial and may have part relieved itself during the course of exam. Diet was slowly advanced. Repeat KUB three days after showed residual ileus or small-bowel obstruction. She was eventually discharged home. Advised to follow up as outpatient. FINAL DIAGNOSES: 1. Partial small bowel obstruction. 2. Prior history of abdominal surgeries. Shahid Klein M.D. DR: JULEE JOB#: [id number] CC: ANALI
--- NOTE | 2016-11-23 09:10 | Consultation ---
DATE OF CONSULTATION: 10/28/2016 GASTROENTEROLOGY CONSULTATION REPORT: CHIEF COMPLAINT: I was asked to see this patient for evaluation of bowel obstruction. HISTORY OF PRESENT ILLNESS: The patient is a pleasant 61-year-old white woman, who was admitted to the hospital on 10/25/2016 with small bowel obstruction. The patient had surgery about 20 years ago for ovarian cyst and also has had a right inguinal hernia repair as a child when she was 4 years old. The patient had some abdominal discomfort for the past years lasting a few hours and had bowel obstructions which has required admission to hospital . The patient has had a colonoscopy and endoscopy about a year ago at [facility] [place]. She thinks the results were unremarkable. She had an elevated white count when she was admitted but this . to advance the diet from NPO to clear to solids but yesterday when she was on solid diet, her abdomen became more uncomfortable and distended and she is now getting back to clear liquid diet. PAST MEDICAL HISTORY: 1. Status post craniotomy for a benign brain tumor. 2. On Tegretol for seizure prophylaxis, although she has not had any seizures. SOCIAL HISTORY: The patient does not smoke or drink alcohol. She is an actress. She is . She has no children. FAMILY HISTORY: Noncontributory. REVIEW OF SYSTEMS: Negative. PHYSICAL EXAMINATION: GENERAL: The patient is a pleasant white woman seen with her at bedside. HEENT: Normocephalic and atraumatic. Sclerae anicteric. Oropharynx clear. NECK: Supple. CHEST: Clear to auscultation. CARDIOVASCULAR: Regular rate. ABDOMEN: Soft, distended, which is moderate. There is some lower abdominal tenderness to palpation bilaterally in the lower quadrants and suprapubic area. There is no guarding or rebound or masses. The old scars from previous surgeries have . EXTREMITIES: With no edema. NEUROLOGIC: Nonfocal. LABORATORY DATA: KUB and laboratory data was noted. ASSESSMENT: This patient has a bout of partial small bowel obstruction, which appeared to be resolving, but then she failed diet trial. At this time, now the patient is back on clear liquid diet and observed closely. Hopefully, her bowel obstruction will once again spontaneously resolve and she could be advanced again. The surgical staff is already following the patient and will watch her closely. Encouraged the patient to IV line but she declined because of IV line access. I would watch her oral intake and hydration status closely. RECOMMENDATIONS: Per above discussion and per orders written in the chart. Thank you for asking me to participate in the care of this patient. Giovanni Stiles M.D. DR: Tommy JOB#: [id number] CC:
== END 2016-10-30 18:45 | disposition home or self-care (01) | DRG 390 ==
LOC: EMR 21:34 → 4W 10-25 00:13 → EDBEDREQ 10-25 00:23
DX: K56.60 Unspecified intestinal obstruction (principal); E86.0 Dehydration; Z86.011 Personal history of benign neoplasm of the brain; R50.9 Fever, unspecified; Z88.6 Allergy status to analgesic agent
CPT/HCPCS: 36415; 74020; 74177; 74250; 80048; 80053; 81003; 82378; 83605; 83690; 83735; 84443; 85007; 85025; 85610; 85730; 86304; 87086; J2405